=== PATIENT | female | born 1955 | race Caucasian/White ===

== ENCOUNTER → 2017-01-15 | Outpatient (CLI) | payer BC ==
[~2017-01-15] MED LIST: CETI10TA84 PO; LORA-741 PO; MOME50SP5; MXZ/ PO; OPTIRAY 320 IV PRN
--- NOTE | 2017-01-15 12:53 | DIAGNOSTIC IMAGING REPORT ---
CT SCAN OF THE CHEST, ABDOMEN, AND PELVIS WITH IV CONTRAST CLINICAL HISTORY: Ovarian mass. History of cancer of the fallopian tube. COMPARISON STUDY: CT scan of the chest, abdomen, and pelvis dated 01/03/2016. TECHNIQUE: Following the IV administration of 120 of Optiray 320, CT scan of the chest, abdomen, and pelvis was performed from the thoracic inlet to the proximal femora. Images are reviewed in the axial, sagittal, and coronal planes. IV contrast was administered without complication. Automated dose control exposure was utilized. The examination is degraded by streak artifact from the left arm which could not be elevated above the chest or abdomen. CT DOSE: 2544.84 mGy.cm FINDINGS: CHEST: Thyroid: Imaged portions of the thyroid gland are normal in size and attenuation. Thoracic aorta: The thoracic aorta is normal in caliber and demonstrates bovine variant arch anatomy. The left vertebral artery arises directly from the aortic arch. No dissection is seen. Pulmonary vasculature: The pulmonary trunk is normal in caliber. There are no filling defects identified in the central pulmonary vessels to indicate pulmonary was. Note that this examination was not protocoled for evaluation of the pulmonary arteries. Heart: The heart is normal in size and configuration, and without pericardial effusion. Lungs and pleural spaces: There is no airspace consolidation or pleural effusion. The trachea and central airways are clear. A 3 mm pleural-based nodule the right apex seen on image #52 is unchanged from 01/03/2016 and of low suspicion. No new pulmonary nodules are identified. Mediastinum: There is no mediastinal lymphadenopathy. [place]: Clear. Axillae: There is no axillary lymphadenopathy. Bony thorax: The skeletal structures are osteopenic. The bony thorax appears intact. Mild degenerative change is noted in the thoracic spine. No lytic or blastic lesions are identified. ABDOMEN AND PELVIS: Liver: The contrast-enhanced liver is mildly enlarged, measuring 18.5 cm in length. The liver demonstrates diffusely diminished attenuation consistent with hepatic steatosis. There is no intrahepatic biliary ductal dilatation. An 8 mm cyst is noted in the right lobe. The hepatic veins and portal veins are patent. Gallbladder: There are numerous large calcified gallstones. There is no CT evidence of acute cholecystitis. Spleen: Normal in size and attenuation. Pancreas: There is mild atrophy of the pancreas.2 subcentimeter lipomas versus interdigitating retroperitoneal fat are again identified within the pancreatic neck and proximal body seen on image #184. Adrenal glands: Unremarkable. Kidneys: The contrast enhanced kidneys are normal in size and without hydronephrosis. The kidneys enhance symmetrically. Parapelvic cysts are noted on the left. Scattered subcentimeter cortical hypodensities likely represent cysts but are small for definitive characterization. Abdominal vasculature: The abdominal aorta is normal in course and caliber. Bowel: The small bowel and colon are normal in course and caliber. There is moderate colonic fecal retention. The appendix is well-visualized and normal. Peritoneum: There is no intraperitoneal free air or abdominal ascites. A fat-containing umbilical hernia is identified. Lymphadenopathy: Scattered mesenteric lymph nodes measure up to 8mm in short axis. No pathologically enlarged lymph nodes are identified in the abdomen or pelvis. Pelvic viscera: The bladder is normal as visualized. The uterus is surgically absent. No adnexal lesion is identified. Skeletal structures: The skeletal structures are osteopenic. No lytic or blastic bony lesions are seen. There is mild lumbosacral spondylosis. IMPRESSION: 1. There is no evidence of metastatic disease in the chest, abdomen, or pelvis. 2. There is no airspace consolidation or pleural effusion. 3. There is an indeterminant but low suspicion 3 mm right apical pulmonary nodule, unchanged from 01/03/2016. Attention at follow-up is recommended. 4. There are no acute infectious or inflammatory findings in the abdomen or pelvis. 5. Mild hepatic steatosis. 6. Cholelithiasis. 7. Additional findings as above. Electronically signed by: Yung Pritchett M.D. 01/15/2017 12:52 PM Dictated Date/Time: 01/15/2017 12:40 PM
== END | disposition home or self-care (01) ==
LOC: C.CTS 12:00
PROVIDERS: ATTEND Obstetrics & Gynecology Gynecologic Oncology
DX: N83.9 Noninflammatory disorder of ovary, fallopian tube and broad ligament, unspecified (principal); R91.1 Solitary pulmonary nodule; K80.20 Calculus of gallbladder without cholecystitis without obstruction